=== PATIENT | female | born 1945 | race African-American/Black ===

== ENCOUNTER 2018-08-04 10:05 | Inpatient (IN) | payer MEDICARE, MEDICAID ==
[2018-08-04] MEDS ORDERED: cefTRIAXone\\ROCEPHIN 1 GM VIAL ONE (10:51)
[2018-08-04 13:23] LABS: #Basophils 0.1 thou/uL (0.0-0.2); #Eosinphils 0.2 thou/uL (0.0-0.7); #Lymphocytes 1.9 thou/uL (1.20-3.40); #Monocytes 0.9 thou/uL (0.11-0.59); #Neutrophils 9.3 thou/uL (1.40-6.50); %Basophils 0.4 % (0.0-1.0); %Eosinophils 1.3 % (0.0-10.0); %Lymphocytes 15.1 % (21.0-51.0); %Monocytes 7.6 % (0.0-10.0); %Neutrophils 75.6 % (42.0-75.0); Hemoglobin 11.2 g/dL (12.0-16.0); Mean Corpuscular HGB CONC 29.6 g/dL (32.0-36.0); Mean Corpuscular Hemoglobin 31.9 pg (27.0-31.0); Mean Platelet Volume 8.1 fL (7.4-10.4); Platelet Count 422 thou/uL (130-400); White Blood Cell (WBC) Count 12.3 thou/uL (4.8-10.8)
[2018-08-04 13:49] LABS: ALT (SGPT) 20 U/L (8-55); AST (SGOT) 38 U/L (5-34); Albumin 2.6 g/dL (3.4-4.8); Alkaline Phosphatase 149 U/L (40-150); Anion Gap 20 mmol/L (10-20); BUN (Urea Nitrogen) 27 mg/dL (9.8-20.1); Bilirubin, Total 0.9 mg/dL (0.2-1.2); Calc. Creatinine Clearance 0 mL/min (70-130); Calcium 9.2 mg/dL (7.8-10.44); Carbon Dioxide 27 mmol/L (23-31); Chloride 95 mmol/L (98-107); Estimated GFR-MDRD 7; Globulin 4.4 g/dL (2.4-3.5); Lipase 16 U/L (8-78); Potassium 4.3 mmol/L (3.5-5.1); Sodium 138 mmol/L (136-145)
[2018-08-04 13:53] LABS: CKMB 0.7 ng/mL (0-6.6); Troponin I 0.031 ng/mL (< 0.028)
[2018-08-04 13:56] LABS: Glucose 54 mg/dL (83-110)
[2018-08-04] MEDS ORDERED: Dextrose 50% Abboject 50 ML SYRINGE ONE (13:59)
[2018-08-04 15:31] LABS: Bilirubin Negative (Negative); Blood, Urine Moderate (Negative); Clarity TURBID (Clear); Glucose, Urine (Dipstick) Negative (Negative); Leukocyte Large (Negative); Nitrite Negative (Negative); Protein, Urine (Dipstick) 100 mg/dL (Neg-Trace)
[2018-08-04 15:33] LABS: Squamous Epithelial 21-50 HPF (0-3)
[2018-08-04 15:37] LABS: Pathc Cast-AUWi Flag 4.84 (0-2.49); Yeast-AUWi Flag 93.1 (0-25.0)
[2018-08-04 15:56] LABS: Bacteria/HPF 3+ HPF (None Seen); Hyaline Casts/LPF NONE SEEN LPF (0-3 Hyaline); Manual Microscopic Reviewed? No Path Casts Seen; RBC/HPF 0-3 HPF (0-3); Renal Epithelial 0-3 HPF (0-3); Yeast-All Forms None Seen HPF (None Seen)
[2018-08-04 18:37] VITALS: BMI 21.8
[2018-08-04] MEDS ORDERED: Acetaminophen 325 MG TAB PO PRN (18:41)
[2018-08-04] MEDS ORDERED: Guaifenesin DM 100-10/5 ML UDCUP PO PRN (18:41)
[2018-08-04] MEDS: Dextrose 5 % And 0.9 % NaCl 1,000 ML IV SCH (23:06)
[2018-08-04] MEDS: Metoclopramide HCl 10 MG TAB PO SCH (23:08)
[2018-08-04] MEDS: cloNIDine 0.1 MG TAB PO SCH (23:09)
[2018-08-04] MEDS: Heparin 5,000 UNITS/ML VIAL SC SCH (23:15)
--- NOTE | 2018-08-04 23:37 | HP ---
REASON FOR ADMISSION: Intractable nausea, vomiting, weight loss of 23 pounds in the last 2 months. HISTORY OF PRESENT ILLNESS: The patient gives history of having severe nausea and vomiting off and o n from last two months. Patient states she was weighing 150 pounds and is now 127 pounds. She has h ad screening colonoscopies including upper endoscopy done more than 10 years ago and was found to hav e just polyp. This was not done here. 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 Burton in [place]. Patient has mild abdominal discomfort in the middle, but no real pain or colic. She has been living at a [facility] home from last 4 years in [place]. PAST MEDICAL/SURGICAL HISTORY: End-stage renal disease on hemodialysis on Tuesday, Tuesday, and Tue from last 4 years, hypertension, dyslipidemia, hypothyroidism, history of cerebrovascular accide nt with right-sided hemiparesis, thyroid surgery, left upper extremity dialysis access procedures, os teoarthritis, history of polio. CURRENT MEDICATIONS: Please note patient does not recall any of her medications. We will try to obt ain from her usp. Per [facility], patient is on Celexa 20 mg daily, colestipol 1 gram p.o. 3 times daily, metoprolol 100 mg twice daily, Protonix 40 mg daily, sodium bicarbonate 650 mg twice dawna ly, aspirin 81 mg p.o. daily, clonidine 0.1 mg p.o. 3 times daily, ferrous sulfate 325 mg twice daily , Procardia-XL 60 mg daily, MiraLax 17 grams daily. ALLERGIES: COREG, EZETIMIBE, CRESTOR, SIMVASTATIN. PERSONAL HISTORY: Does not abuse alcohol or drugs. No history of smoking. She is currently wheelch air bound and takes a few steps with a walker. She is at [facility] from last 4 year s. FAMILY HISTORY: Mother at the age of 70 from unknown causes. Father in his 80s with histo ry of prostate cancer. CODE STATUS: FULL. Power of commonwealth attorney is her daughter, Ms. Maddie Hester, number to reach her is . REVIEW OF SYSTEMS: The following complete review of systems was negative, unless otherwise mentioned in the HPI or below: Constitutional: Weight loss or gain, ability to conduct usual activities. Sk in: Rash, itching. Eyes: Double vision, pain. ENT/Mouth: Nose bleeding, neck stiffness, pain, te nderness. Cardiovascular: Palpitations, dyspnea on exertion, orthopnea. Respiratory: Shortness of breath, wheezing, cough, hemoptysis, fever or night sweats. Gastrointestinal: Poor appetite, abdom inal pain, heartburn, nausea, vomiting, constipation, or diarrhea. Genitourinary: Urgency, frequenc y, dysuria, nocturia. Musculoskeletal: Pain, swelling. Neurologic/Psychiatric: Anxiety, depressio n. Allergy/Immunologic: Skin rash, bleeding tendency. PHYSICAL EXAMINATION: GENERAL: The patient is a 73-year-old female who is currently not in any acute distress. VITAL SIGNS: Blood pressure 126/76, pulse 66 per minute, respiratory rate is 16 per minute, temperat ure 98.5 degrees Fahrenheit, saturating 94% on room air. NECK: Supple, no elevated JVD. HEENT: Eyes, extraocular muscles intact. Pupils are reacting to light. Oral cavity, mucous membran es are dry. No exudates or congestion. CARDIOVASCULAR: S1, S2 heard. Regular rhythm. RESPIRATORY: Air entry 1+ bilaterally. No rales or rhonchi. ABDOMEN: Soft, bowel sounds heard. No tenderness, rigidity or guarding. EXTREMITIES: There is peripheral edema and mild calf tenderness. VASCULAR: Peripheral pulses are 1+ bilateral, no ischemic ulcerations or gangrene. CENTRAL NERVOUS SYSTEM: The patient has mild right hemiparesis, also has flexion deformities of her fingers which family stated they are chronic. No acute focal deficits seen. PSYCHIATRIC: The patient's mood is euthymic. No hallucinations or delusions. LABORATORY AND X-RAY FINDINGS: White count of 12, H&H 11 and 37, platelet count 422 with 75% neutrop hils, MCV is 108, BUN 27, creatinine 6.9, serum bicarbonate 27. Serum glucose 54. Lactic acid 2.0, AST 38, albumin is 2.6, troponin I 0.03. Lipase is 16. UA shows large leukoesterase, greater than 5 0 wbc's, 3+ bacteria. CLINICAL IMPRESSION AND PLAN: Patient will be admitted to medical floor for intractable nausea, vomi ting and weight loss. She also had hypoglycemia and it is unclear if she has invasive UTI to rule ou t sepsis. We will place her on D5 NS at 75 mL per hour. We will continue her aspirin, calcitriol, C elexa, clonidine, ferrous sulfate, metoprolol, Procardia-XL as before. Patient will be on Protonix 4 0 mg twice daily and Reglan 10 mg a.c. and at bedtime. We will obtain CT of the abdomen and pelvis w ith and without contrast and dialyze her likely in the morning. We will also obtain ultrasound venou s Doppler of lower extremities to rule out DVT. The patient is essentially wheelchair bound and has swelling of both calf areas with tenderness as well. We will consult Dr. Herson Rosas for Gastroente rology.
[2018-08-05] MEDS: Metoprolol Tartrate 100 MG TAB PO SCH ×3 (04:41→20:20)
[2018-08-05 05:34] LABS: Anion Gap 11 mmol/L (10-20); BUN (Urea Nitrogen) 28 mg/dL (9.8-20.1); Calc. Creatinine Clearance 6 mL/min (70-130); Calcium 7.9 mg/dL (7.8-10.44); Carbon Dioxide 29 mmol/L (23-31); Chloride 100 mmol/L (98-107); Estimated GFR-MDRD 6; Glucose 130 mg/dL (83-110); Potassium 3.6 mmol/L (3.5-5.1); Sodium 136 mmol/L (136-145)
[2018-08-05 06:03] LABS: Vitamin B12 Greater than 2000 pg/mL (211-911)
[2018-08-05 06:28] LABS: Hemoglobin 10.1 g/dL (12.0-16.0); Hypochromia SLIGHT = 6-15 cells (100X) (0-5/hpf); Lymphocytes 19 % (21-51); MDiff Complete? YES; Macrocytosis SLIGHT = 6-15 cells (100X) (0-5/hpf); Mean Corpuscular Hemoglobin 31.9 pg (27.0-31.0); Monocytes 10 % (0-10); Neutrophil 71 % (42-75); Platelet Count 406 thou/uL (130-400); RBC Distribution Width 16.3 % (11.5-14.5); Red Blood Cell (RBC) Count 3.15 mill/uL (4.20-5.40); White Blood Cell (WBC) Count 7.2 thou/uL (4.8-10.8)
[2018-08-05] MEDS: Metoclopramide HCl 10 MG TAB PO SCH ×4 (07:18→20:20)
--- NOTE | 2018-08-05 08:36 | CON ---
DATE OF SERVICE: 08/05/2018 HISTORY OF PRESENT ILLNESS: Ms. Caban is a 73-year-old black female who was admitted for generalize d malaise, nausea, and vomiting. She was complaining of some abdominal pain. She has also significa nt weight loss in the last several months. We are now being consulted for her maintenance hemodialys is. The patient missed her hemodialysis yesterday and she is declining dialysis today since she is n ot feeling well. REVIEW OF SYSTEMS: No chest pain. No shortness of breath. Positive for weight loss. Positive for nausea and vomiting, mild abdominal discomfort. No fever, no chills, no hematochezia, no melena, no hematemesis, no dysuria. Decreased appetite. No headache, no diplopia, no syncopal episode. MEDICATIONS: Celexa 20 mg every day, colestipol 1 gram p.o. 3 times a day, metoprolol 100 mg twice a day, Protonix 40 mg tablet once a day, aspirin 81 mg tablet once a day, clonidine 0.1 mg b.i.d. Heparin 5000 units subcu t.i.d., nifedipine 60 mg once a day. PAST MEDICAL HISTORY: 1. Recent history of progressive weight loss. 2. End-stage renal disease -- on maintenance hemodialysis Tuesday, Tuesday, and Tuesday, status post CVA, longstanding hypertension, morbid obesity, hyperlipidemia, history of gout. PAST SURGICAL HISTORY: Status post colonoscopy, status post thyroidectomy, status post bilateral tub al ligation. 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 Status post blood transfusion. Retired [facility]. Education, high school. Smoked for 5 years, two packs a day. Alcohol none. Sedentary lif estyle. FAMILY HISTORY: No family history of ESRD. ALLERGIES: None, but adverse reaction to CRESTOR, VYTORIN and COREG. TRAUMA: None. IMMUNIZATIONS: Up-to-date. HOSPITALIZATIONS: Please see past medical history. PHYSICAL EXAMINATION: VITAL SIGNS: Blood pressure 114/69, heart rate 81, respiratory rate 18, temperature 98.6, pulse ox 9 2%. GENERAL: Awake, alert, supine, comfortable, not in overt distress. SKIN: Adequate turgor. HEENT: Slightly pale conjunctivae, anicteric sclerae. NECK: No neck mass, no carotid bruits, no JVD. CHEST: No deformities. LUNGS: Clear breath sounds, no wheezing, no crackles. HEART: Normal sinus rhythm. No murmur, gallops or rubs. ABDOMEN: Globular, soft, nontender, no masses. EXTREMITIES: No edema, no deformities. LABORATORY: Laboratories of 08/05/2018, white count 7.2, hemoglobin 10.1. Sodium 136, potassium 3.6 , chloride 100, carbon dioxide 29, BUN 28, creatinine 7.85, glucose 130, calcium 7.9. ASSESSMENT AND PLAN: 1. End-stage renal disease, stable. The patient declining any dialytic intervention today. We will again reevaluate her tomorrow. If needed, I will schedule her for regular dialysis tomorrow. She u sually undergoes a 3-hour hemodialysis. Review of the last Kt/V suggests she is adequately dialyzed with the current dialysis regimen. 2. Borderline anemia, we will observe. 3. Weight loss/nausea and vomiting. CT scan of the abdomen has been scheduled. GI consult has been done. Overall, agree with current management. We will check base met and CBC in a.m.
[2018-08-05] MEDS: Heparin 5,000 UNITS/ML VIAL SC SCH ×3 (09:53→20:21)
[2018-08-05] MEDS: Dextrose 5 % And 0.9 % NaCl 1,000 ML IV SCH ×2 (09:53→21:23)
[2018-08-05] MEDS: Calcitriol 0.25 MCG CAP PO SCH (09:54)
[2018-08-05] MEDS: Aspirin 81 mg Enteric Coated Tablet PO SCH (09:54)
[2018-08-05] MEDS: Ferrous Sulfate 325 MG TAB PO SCH ×2 (09:54→17:03)
[2018-08-05] MEDS: Citalopram 20 MG TAB PO SCH (09:54)
[2018-08-05] MEDS: cloNIDine 0.1 MG TAB PO SCH ×3 (09:55→20:20)
[2018-08-05] MEDS: NIFEdipine XL 60 MG TAB PO SCH (09:55)
[2018-08-05] MEDS ORDERED: Heparin 10,000 UNITS/ 10 ML VIAL ONE (10:00)
--- NOTE | 2018-08-05 10:28 | ULT ---
ULTRASOUND WITH DOPPLER DUPLEX VENOUS LOWER EXTREMITY BILATERAL: CPT: 93126 ICD-10-PCS: B54D INDICATION: Bilateral lower extremity pain. TECHNIQUE: Color flow Doppler, spectral waveform analysis of pulsed Doppler, and batista-scale imaging with micky lilly and augmentation, were used to evaluate the bilateral common femoral, femoral, popliteal, semiautomatic taper operator ior tibial, and superficial femoral, veins; and the proximal portions of the profunda femoral and gre ater saphenous, veins. FINDINGS: There is appropriate compressibility and flow within the imaged deep vein system of each lower extrem ity without evidence of deep vein thrombosis. IMPRESSION: No deep venous thrombosis of the visualized bilateral lower extremities. POS: [facility]
--- NOTE | 2018-08-05 11:04 | PDOC.PN ---
- Subjective Encounter Start Date: 08/05/18 Encounter Start Time: 11:02 Tolerated some clear liquids. Says she is not nauseated...but could be. - Objective Resuscitation Status: Resuscitation Status FULL:Full Resuscitation Vital Signs & Weight: Vital Signs (12 hours) Temp Pulse Resp BP BP Pulse Ox 08/05/18 10:55 98.1 F 71 16 116/59 L 95 08/05/18 09:55 81 120/70 08/05/18 07:13 98.6 F 81 18 114/69 92 L 08/05/18 04:00 97.8 F 84 16 116/64 92 L 08/05/18 00:00 97.8 F 91 16 113/67 92 L 08/04/18 23:09 120/70 Weight Weight 127 lb Result Diagrams: 08/05/18 04:52 08/05/18 04:52 Phys Exam - Physical Examination Constitutional: NAD Respiratory: no wheezing, no rales, no rhonchi, clear to auscultation bilateral Cardiovascular: RRR, no significant murmur Gastrointestinal: soft, non-tender, no distention, positive bowel sounds Musculoskeletal: no edema Dx/Plan (1) Nausea & vomiting Code(s): R11.2 - NAUSEA WITH VOMITING, UNSPECIFIED Status: Acute (2) Weight loss Status: Acute (3) ESRD (end stage renal disease) on dialysis Code(s): N18.6 - END STAGE RENAL DISEASE; Z99.2 - DEPENDENCE ON RENAL DIALYSIS Status: Acute - Plan * CT abdomen results pending. * GI consult pending. * HD tomorrow.
--- NOTE | 2018-08-05 11:23 | CT ---
ABDOMEN AND PELVIC CT SCAN WITH IV CONTRAST: Date: 08/05/18 HISTORY: 73-year-old female with history of intractable nausea and vomiting and abdominal pain. FINDINGS: There are bilateral pleural effusions, somewhat larger on the right side, with bibasilar pulmonary an d parenchymal changes, also more marked on the right side, evidence for subsegmental atelectasis and/ or some associated scarring. There is three vessel coronary artery calcific disease. No evidence for pericardial effusion. Within the liver, there are numerous abnormal low attenuation foci up to 1.6 cm in size, mostly in th e right lobe, but also in the left lobe, which did not have attenuation coefficient consistent with b enign cyst, certainly raising concern for the possibility of metastasis. The pancreas, spleen, and adrenal glands are unremarkable. There is severe levoscoliosis of the lumba r spine with some resultant deformity of the abdominal structures. Very small kidneys bilaterally wit h some bilateral renal cysts, but no evidence for renal hydronephrosis. Gallbladder is present and shows some minimal pericholecystic fluid, but no overt gallbladder distent ion or ductal dilatation. Scattered calcific changes of the aorta and great vessels within the abdomen. Normal appearing appendix. Scattered colonic diverticulosis without acute diverticulitis. There are s everal areas of questionable colonic wall thickening, nonspecific. Unremarkable uterus. Trace cul-de-sac fluid. No overt adenopathy. IMPRESSION: 1. Multiple low attenuation masses within the right and left lobes of the liver, which are not defin itely benign cysts, raising concern for metastasis. 2. Small bilateral pleural effusions, larger on the right side, as well as minimal bilateral pulmona ry parenchymal changes, evidence for atelectasis and/or chronic change. 3. Severe levoscoliosis of the lumbar spine with resultant deformity of the abdominal organs. 4. Small kidneys bilaterally with bilateral renal cysts, but no renal hydronephrosis. 5. Scattered colonic diverticulosis without overt acute diverticulitis. 6. Prominent atherosclerosis of the aorta and great abdominal vessels. 7. Gallbladder is present and shows some minimal pericholecystic fluid, but no overt gallbladder dis tention or ductal dilatation. CODE T. POS: [facility]
[2018-08-06 06:28] LABS: #Eosinphils 0.1 thou/uL (0.0-0.7); #Lymphocytes 1.6 thou/uL (1.20-3.40); #Monocytes 0.7 thou/uL (0.11-0.59); #Neutrophils 6.4 thou/uL (1.40-6.50); %Basophils 0.6 % (0.0-1.0); %Lymphocytes 18.4 % (21.0-51.0); %Monocytes 8.2 % (0.0-10.0); %Neutrophils 71.9 % (42.0-75.0); Hemoglobin 10.2 g/dL (12.0-16.0); Mean Corpuscular HGB CONC 30.4 g/dL (32.0-36.0); Mean Corpuscular Hemoglobin 32.7 pg (27.0-31.0); Mean Platelet Volume 7.2 fL (7.4-10.4); Platelet Count 372 thou/uL (130-400); Red Blood Cell (RBC) Count 3.12 mill/uL (4.20-5.40); White Blood Cell (WBC) Count 8.8 thou/uL (4.8-10.8)
[2018-08-06 06:42] LABS: Anion Gap 9 mmol/L (10-20); BUN (Urea Nitrogen) 13 mg/dL (9.8-20.1); Calc. Creatinine Clearance 10 mL/min (70-130); Carbon Dioxide 29 mmol/L (23-31); Chloride 102 mmol/L (98-107); Estimated GFR-MDRD 11; Glucose 94 mg/dL (83-110); Potassium 3.4 mmol/L (3.5-5.1); Sodium 137 mmol/L (136-145)
--- NOTE | 2018-08-06 07:06 | CON ---
DATE OF CONSULTATION: 08/05/2018 REASON FOR CONSULTATION: Intractable nausea and vomiting, weight loss. CONSULTING PHYSICIAN: Tommy Mari M.D. HISTORY OF PRESENT ILLNESS: The patient is a 73-year-old -B[place] female with past medical h istory of end-stage renal disease on hemodialysis, hypertension, hyperlipidemia, hypothyroidism, cere brovascular accident with right hemiparesis, morbid obesity, gout, osteoarthritis, and a history of p olio, presenting with complaints of nausea, vomiting, and weight loss. The patient at the time of e interview, the patient had just recently got back from dialysis and as such was somewhat somnolent during the exam. She was extremely poor historian with the remainder of the information obtained layla bong through chart review. Per the patient and per chart review, she said that she had been having increased nausea and vomiting over the last 2 months; however, upon further questioning the patient, she said that she had been having nausea "kind often" with actual vomiting approximately once every 2 weeks. This was associated with increased heartburn but "not anymore." Upon further questioning o f the patient about her weight loss, she stated that she had been losing weight at home, but could no t remember exactly how much over what time period. Per chart review, it states that she had lost radha roximately 20-25 pounds over the last few months in association with severe nausea and vomiting. Per chart review, it also stated that she had been having increased abdominal discomfort from seeming e periumbilical region, but upon questioning the patient on physical exam today, she denies any abdom inal pain nor was tenderness to palpation elicited on physical examination. At the current time, the patient denies any nausea, vomiting, fevers, chills, shortness of breath, abdominal pain, diarrhea, constipation or GI bleeding. REVIEW OF SYSTEMS: A 10-category review of systems was obtained with all responses negative except f or the pertinent positives as listed in the HPI. PAST MEDICAL HISTORY: As per HPI. PAST SURGICAL HISTORY: Left upper extremity arteriovenous fistula placement, hemodialysis. FAMILY HISTORY: Denies any GI malignancies. SOCIAL HISTORY: Denies any tobacco, alcohol or illicit drug use. OUTPATIENT MEDICATIONS: Reviewed. ALLERGIES: COREG, EZETIMIBE, CRESTOR, and SIMVASTATIN. PHYSICAL EXAMINATION: VITAL SIGNS: Temperature 97.6, pulse 77, blood pressure 130/69, respiratory rate 16, satting 94% on room air. GENERAL: The patient was lying in bed in no acute distress, alert and oriented x3, somewhat somnolen t during the examination. NECK: Supple. No JVD or scleral icterus noted. CARDIOVASCULAR: Regular rate and rhythm with no discernible murmurs, gallops or rubs. LUNGS: Clear to auscultation bilaterally with no discernible wheezes or rales. ABDOMEN: Normoactive bowel sounds, soft, nontender, nondistended. EXTREMITIES: No cyanosis, clubbing or edema. LABORATORY DATA: CBC with a white blood cell count of 7.2, hemoglobin 10.1, hematocrit 33.6, platele ts 406. Chemistry with a sodium of 136, potassium 3.6, chloride 100, CO2 of 29, BUN 28, creatinine 7 .85, glucose 130, AST 38, ALT 20, alkaline phosphatase 149, total bilirubin 0.9, albumin 2.6, lipase 16. Urinalysis was consistent with a contaminated sample. IMAGING DATA: CT of the abdomen and pelvis obtained on 08/05/2018 showed multiple/numerous abnormal low attenuation foci up to 1.6 cm seen in both the left and right hepatic lobes concerning for metast atic disease. Bilateral pleural effusions with the effusion being somewhat larger on the right side was also seen. Subsegmental atelectasis was also noted during the CT scan. ASSESSMENT AND PLAN: The patient is a 73-year-old -[place] female with past medical history of end-stage renal disease on hemodialysis, hypertension, hyperlipidemia, hypothyroidism, cerebrovasc ular accident with right hemiparesis, morbid obesity, gout, osteoarthritis, and a history of polio, p resenting with a history of chronic nausea and vomiting, weight loss and abnormal GI imaging concerni ng for metastatic disease. Chronic nausea and vomiting. Per chart review, the patient had remarked that she has been having chr onic nausea and vomiting over the last 2 months characterized as frequent episodes of emesis; however , upon questioning the patient tonight she states that she would get nauseated on a more common basis , but would vomit approximately once every 2-3 weeks with nonbloody emesis. She does endorse a histo ry of substernal pyrosis/heartburn, which could potentially contribute to increased nausea and vomiti ng, but it is unclear to assess at this time given the patient's conflicting stories per chart review and with the interview obtained tatiana. RECOMMENDATIONS: 1. We would continue pantoprazole 40 mg b.i.d. for possible acid reflux contributing to nausea and v omiting. 2. Would consider changing patient from metoclopramide to Zofran given the lack of evidence of gastr oparesis in this particular patient and the long-term side effects associated with use. 3. We will confer with primary team in the morning as to further guidance regarding nausea and vomit ing. Abnormal GI imaging. The patient is presenting with a stated history of increased nausea, vomiting, and weight loss of approximately 20 pounds over the last couple of months along with the appearance o f numerous foci within the left and right hepatic lobes measuring up to 1.6 cm. At this point, it is concerning for possible metastatic disease, most likely from a colonic origin. Per chart review, th e patient had had a colonoscopy performed approximately 10 years ago, during which she was found to h ave just a polyp. The operative report is not available for review. At this time, when I broached t he subject of a repeat colonoscopy to the patient tatiana, she gave a very noncommittal answer during the course of our interview. RECOMMENDATIONS: 1. Would obtain a serum CEA for possible colonic malignancy. If elevated, would strongly consider c olonoscopy for further evaluation. 2. We will confer with primary team and the patient again tomorrow about possible colonoscopy for in traluminal evaluation of a colonic primary. We will continue to follow. Please call with any questions.
[2018-08-06] MEDS: Metoclopramide HCl 10 MG TAB PO SCH ×4 (08:49→20:40)
[2018-08-06] MEDS: Ferrous Sulfate 325 MG TAB PO SCH ×2 (08:49→16:03)
[2018-08-06] MEDS: Aspirin 81 mg Enteric Coated Tablet PO SCH (08:49)
[2018-08-06] MEDS: cloNIDine 0.1 MG TAB PO SCH ×3 (08:50→20:40)
[2018-08-06] MEDS: Calcitriol 0.25 MCG CAP PO SCH (08:50)
[2018-08-06] MEDS: Metoprolol Tartrate 100 MG TAB PO SCH ×2 (08:50→20:40)
[2018-08-06] MEDS: Heparin 5,000 UNITS/ML VIAL SC SCH ×3 (08:50→20:41)
[2018-08-06] MEDS: Citalopram 20 MG TAB PO SCH (08:50)
[2018-08-06] MEDS: NIFEdipine XL 60 MG TAB PO SCH (08:51)
[2018-08-06] MEDS: Saccharomyces boulardii 250 MG CAP PO SCH (08:51)
--- NOTE | 2018-08-06 10:31 | ULT ---
RIGHT UPPER QUADRANT ULTRASOUND: Date: 08/06/18 HISTORY: 73-year-old female with history of follow-up lesions on liver. COMPARISON: 08/05/18. FINDINGS: Liver echotexture is very coarse with multiple nodular masses throughout the right and left lobes of the liver, up to 2.1 cm in size, evidence for metastasis. The gallbladder was difficult to visualize, but appeared to have echogenic material within the lumen, as well as gallbladder wall thickening and pericholecystic fluid. No common duct or intrahepatic ductal dilatation. Right pleural effusion. Sma ll right renal cyst. IMPRESSION: Coarse liver echotexture with multiple nodular masses within right and left lobes of the liver, up to 2.1 cm, evidence for liver metastasis. No common duct or intrahepatic ductal dilatation. Poorly defi ana maria gallbladder with what appears to be some echogenic material within the gallbladder, possibly slud ge or nonshadowing stones, as well as some pericholecystic fluid. Right renal cyst and right pleural effusion. POS: [facility]
--- NOTE | 2018-08-06 14:04 | HP ---
HISTORY OF PRESENT ILLNESS: Ms. Caban is a 73-year-old black female with ESRD and [facility] maintenance hemod[facility]. She initially declined dialysis yesterday, but changed he r mind, she underwent dialysis. She is admitted for nausea and vomiting and for weight loss. GI has been consulted and imaging of the abdomen and pelvis - CT scan showed multiple low attenuation ricardo s in the right and left lobes of the liver. There is small bilateral pleural effusion. GI is recomm ending colonoscopy, especially with mildly elevated CEA. No other complaints today. No chest pain, shortness of breath. OBJECTIVE: VITAL SIGNS: Blood pressure is 138/61, heart rate 84, respiratory rate 16, temperature 97.6, pulse o x 94%. GENERAL: Noted to be awake, alert, comfortable, not in overt distress. SKIN: Adequate turgor. HEENT: She has pinkish conjunctivae, anicteric sclerae. NECK: No neck mass, no carotid bruits, no JVD. CHEST: No deformities. LUNGS: Clear breath sounds. HEART: Normal sinus rhythm. No murmur, no gallops, no rubs. ABDOMEN: Globular, soft, nontender, no masses. EXTREMITIES: No edema, no deformities. MEDICATIONS: 08/06/2018 was reviewed. LABORATORY: Laboratories of 08/06/2018, white count 8.8, hemoglobin 10.2. Sodium 134, potassium 3.4 , chloride 102, carbon dioxide 29, BUN 13, creatinine 4.58, glucose 94, calcium 8. CEA 6.16. Hemoglobin 10.2. ASSESSMENT AND PLAN: 1. Borderline anemia -- we will continue to observe. 2. Weight loss -- GI has been consulted. She is being worked up for possible colonic malignancy. S he does have lesions noted on the liver with a CAT scan for a possible colonoscopy. 3. End-stage renal disease, stable. We will continue current maintenance hemodialysis on Tuesday, , and Tuesday. Recheck base met and CBC in a.m.
[2018-08-06] MEDS: Ondansetron HCl/PF 4 MG/2 ML Vial IVP PRN (14:40)
--- NOTE | 2018-08-06 18:09 | PDOC.PN ---
- Subjective Encounter Start Date: 08/06/18 Encounter Start Time: 08:50 Patient reports that she had HD yesterday, but nursing indicates otherwise. She denied any problems, but was reported later to have some nausea by nursing. - Objective Resuscitation Status: Resuscitation Status FULL:Full Resuscitation Vital Signs & Weight: Vital Signs (12 hours) Temp Pulse Resp BP BP Pulse Ox 08/06/18 15:21 97.8 F 68 18 144/77 H 92 L 08/06/18 14:41 140/68 08/06/18 11:33 97.5 F L 68 16 118/53 L 95 08/06/18 08:51 138/61 08/06/18 08:50 138/61 08/06/18 08:00 94 L 08/06/18 07:11 97.6 F 84 16 138/61 94 L Weight Admit Weight 127 lb Weight 127 lb I&O: 08/05/18 08/06/18 08/07/18 06:59 06:59 06:59 Intake Total 950 1400 Balance 950 1400 Result Diagrams: 08/06/18 06:02 08/06/18 06:02 Additional Labs: Accuchecks 08/06/18 05:35 POC Glucose 100 Phys Exam - Physical Examination Constitutional: NAD Respiratory: no wheezing, no rales, no rhonchi, clear to auscultation bilateral Cardiovascular: RRR, no significant murmur, no rub Gastrointestinal: soft, non-tender, no distention, positive bowel sounds Musculoskeletal: no edema Dx/Plan (1) Nausea & vomiting Code(s): R11.2 - NAUSEA WITH VOMITING, UNSPECIFIED Status: Acute Comment: Symptomatic treatment. (2) Weight loss Status: Acute (3) ESRD (end stage renal disease) on dialysis Code(s): N18.6 - END STAGE RENAL DISEASE; Z99.2 - DEPENDENCE ON RENAL DIALYSIS Status: Acute (4) Liver masses Code(s): R16.0 - HEPATOMEGALY, NOT ELSEWHERE CLASSIFIED Status: Acute Comment: Confirmed on US to have characteristics of metastatic neoplasm. She says she is willing to undergo colonoscopy. Need to get a tissue diagnosis. Colonoscopy v. liver biopsy. - Plan * Need to get a tissue diagnosis for what looks like liver mets. Has had weight loss and N/V. Needs colonoscopy or liver biopsy.
[2018-08-06] MEDS ORDERED: GoLYTELY 4,000 ml Bottle PO SCH (20:15)
--- NOTE | 2018-08-07 00:36 | PRG ---
DATE OF SERVICE: 08/06/2018 REASON FOR CONSULTATION: Abnormal GI imaging. SUBJECTIVE: The patient did well overnight with no acute events or problems. She states that she do es not have any nausea or vomiting nor does she endorse any abdominal pain. Currently denies nausea, vomiting, fevers, chills, abdominal pain, GI bleeding, dysphagia, or odynophagia. I discussed the findings of her recent CT scan as well as the elevated CEA, concerning for the possib ility of a colonic malignancy. She is amenable to endoscopic evaluation at this time. OBJECTIVE: VITAL SIGNS: Temperature 98, pulse 78, blood pressure 136/73, respiratory rate 16, satting 94% on ro om air. GENERAL: Patient is lying in bed in no acute distress, alert and oriented x3. CARDIOVASCULAR: Regular rate and rhythm. LUNGS: Clear to auscultation bilaterally. ABDOMEN: Normoactive bowel sounds, soft, nontender, nondistended. EXTREMITIES: No cyanosis, clubbing, or edema. LABORATORY DATA: CBC with a white blood cell count of 8.8, hemoglobin 10.2, hematocrit 33.6, platele ts 372. Chemistry with a sodium of 137, potassium 3.4, chloride 102, CO2 of 29, BUN 13, creatinine 4 .58, glucose 94. CEA elevated at 6.16. IMAGING DATA: No current GI imaging is available for review. Right upper quadrant ultrasound obtain ed on 08/06/2018 showed the liver being coarsened echotexture with multiple nodular masses throughout the right and left lobes of the liver measuring up to 2.1 cm in size concerning for metastasis. It also showed echogenic material within the lumen of the gallbladder as well as gallbladder wall thicke salina and pericholecystic fluid. There was no common duct or intrahepatic ductal dilatation. ASSESSMENT AND PLAN: The patient is a 73-year-old -[place] female with past medical history of end-stage renal disease on hemodialysis, hypertension, hyperlipidemia, hypothyroidism, cerebrovasc ular accident with right hemiparesis, morbid obesity, gout, osteoarthritis, and history of polio, pre senting with chronic nausea, vomiting, weight loss, and abnormal GI imaging concerning for metastatic disease. Abnormal gastrointestinal imaging: The patient is presenting with a stated history of increased naus ea, vomiting, and weight loss of approximately 20 pounds over the last couple of months that coincide s with the appearance of multiple foci within the left and right hepatic lobes on both CT and right u pper quadrant ultrasound. At this point, this has also been associated with an increased CEA of appr oximately 6.16. At this point, this is highly concerning for possible metastatic disease with the mo st likely origin being of the colon. At this time, I discussed the possibility of a colonic malignan cy with the patient and she is amenable to colonic preparation tonight in preparation for the colonos copy tomorrow. RECOMMENDATIONS: We will place the patient on clear liquid diet today with plans to make her n.p.o. at midnight in preparation for colonoscopy tomorrow. Patient is to drink 4 liters of GoLYTELY in pre paration for the procedure as well. We will continue to follow. Please call with any questions.
[2018-08-07 04:00] LABS: #Eosinphils 0.1 thou/uL (0.0-0.7); #Lymphocytes 1.9 thou/uL (1.20-3.40); #Neutrophils 5.5 thou/uL (1.40-6.50); %Basophils 0.1 % (0.0-1.0); %Eosinophils 1.5 % (0.0-10.0); %Lymphocytes 21.6 % (21.0-51.0); %Monocytes 12.1 % (0.0-10.0); %Neutrophils 64.6 % (42.0-75.0); Hemoglobin 9.3 g/dL (12.0-16.0); Mean Corpuscular HGB CONC 30.5 g/dL (32.0-36.0); Mean Corpuscular Hemoglobin 32.8 pg (27.0-31.0); Platelet Count 379 thou/uL (130-400); RBC Distribution Width 16.9 % (11.5-14.5); Red Blood Cell (RBC) Count 2.84 mill/uL (4.20-5.40); White Blood Cell (WBC) Count 8.6 thou/uL (4.8-10.8)
[2018-08-07 04:18] LABS: Anion Gap 11 mmol/L (10-20); BUN (Urea Nitrogen) 15 mg/dL (9.8-20.1); Calc. Creatinine Clearance 8 mL/min (70-130); Calcium 7.8 mg/dL (7.8-10.44); Carbon Dioxide 28 mmol/L (23-31); Chloride 102 mmol/L (98-107); Estimated GFR-MDRD 9; Glucose 77 mg/dL (83-110); Potassium 3.7 mmol/L (3.5-5.1); Sodium 137 mmol/L (136-145)
[2018-08-07] MEDS ORDERED: Metoprolol Tartrate 5 MG/5 ML VIAL ONE (05:17)
[2018-08-07] MEDS: Ondansetron HCl/PF 4 MG/2 ML Vial IVP PRN ×2 (05:29→16:37)
[2018-08-07] MEDS: Metoprolol Tartrate 100 MG TAB PO SCH ×2 (05:35→20:19)
[2018-08-07] MEDS: Heparin 5,000 UNITS/ML VIAL SC SCH ×3 (08:07→20:18)
[2018-08-07] MEDS: cloNIDine 0.1 MG TAB PO SCH ×3 (08:07→20:18)
[2018-08-07] MEDS: Citalopram 20 MG TAB PO SCH (08:07)
[2018-08-07] MEDS: Calcitriol 0.25 MCG CAP PO SCH (08:07)
[2018-08-07] MEDS: Aspirin 81 mg Enteric Coated Tablet PO SCH (08:07)
[2018-08-07] MEDS: Ferrous Sulfate 325 MG TAB PO SCH ×2 (08:07→16:40)
[2018-08-07] MEDS: Metoclopramide HCl 10 MG TAB PO SCH ×4 (08:07→20:17)
[2018-08-07] MEDS: Saccharomyces boulardii 250 MG CAP PO SCH (08:08)
[2018-08-07] MEDS: NIFEdipine XL 60 MG TAB PO SCH (08:08)
--- NOTE | 2018-08-07 10:06 | PRG ---
DATE OF SERVICE: 08/07/2018 SUBJECTIVE: Ms. Caban is a 73-year-old black female who was admitted for generalized malaise. She was noted to be anemic at that time. She is currently on Epogen. She was also noted on imaging of the abdomen to have a ? of metastatic liver lesion. For that reason , GI was consulted. A planned colonoscopy has been scheduled. No other complaints today. PHYSICAL EXAMINATION: VITAL SIGNS: Blood pressure 151/82, heart rate 65, respiratory rate 19, temperature 97.6, pulse ox 9 2%. GENERAL: Awake, alert, comfortable, not in distress. SKIN: Adequate turgor. HEENT: Slightly pale conjunctivae, anicteric sclerae. NECK: No neck mass, no carotid bruits, no JVD. CHEST: No deformities. LUNGS: Clear breath sounds. HEART: Normal sinus rhythm. No murmur, no gallops, no rubs. ABDOMEN: Globular, soft, nontender, no masses. EXTREMITIES: No edema. MEDICATIONS: 08/07/2018 - Reviewed. LABORATORY: 08/07/2018 - White count 8.6, hemoglobin 9.3. Sodium 137, potassium 3.7, chloride 102, carbon dioxide 28, BUN 15, creatinine 5.58, glucose 77, calcium 7.8. CEA 6.16 -- elevated. ASSESSMENT AND PLAN: 1. Anemia/hepatic lesions - patient is scheduled for a colonoscopy today. She will try to be ruled out for possible colonic carcinoma. 2. End-stage renal disease. We will continue current heparin free hemodialysis. She is scheduled t his afternoon. Fluid removal only as tolerated. She is scheduled for a 3-hour dialysis. 3. Anemia. Continue to observe. Recheck CBC and base met in a.m.
[2018-08-07] MEDS: Ciprofloxacin Lactate/D5W 200 MG in Premix Bag 1 BAG IVPB SCH ×4 (13:10→23:00)
--- NOTE | 2018-08-07 22:43 | PRG ---
DATE OF SERVICE: 08/07/2018 REASON FOR CONSULTATION: Abnormal GI imaging. SUBJECTIVE: The patient was planned for colonoscopy earlier this morning, but was unable to tolerate the prep, drinking approximately 1 liter of the fluid and experiencing increased nausea with adminis tration. She then refused further administration of the GoLYTELY prep and as such was not adequately prepped for the procedure today. Upon talking with the patient about the need for colonoscopy, I ex pressed the importance of the procedure for determination of a possible colonic malignancy and as suc h will need to be properly prepared for the examination so that adequate visualization of the colonic mucosa could be performed. However, at this time, she does not wish to proceed with the colonoscopy and stated that she could not tolerate the prep and would therefore not want this procedure. She ex pressed some desire to try again for the colonoscopy as an outpatient when she returns in the senior care, but again was adamant that she does not want the procedure during this hospitalization. I hav e explained to the patient that delay in diagnosis could ultimately lead to her demise and she stated that she understood that not progressing with this procedure could result in her . At the time of my interview, the patient was in dialysis and was exhibiting increased nausea with hem odialysis. However, she had not had any nausea, vomiting up until that point. She currently denies any fevers, chills, abdominal pain, GI bleeding, dysphagia or odynophagia. OBJECTIVE: VITAL SIGNS: Temperature 97.6, pulse 65, blood pressure 151/82, respiratory rate 19, satting 92% on room air. GENERAL: The patient was lying in bed in no acute distress, alert and oriented x3. CARDIOVASCULAR: Regular rate and rhythm. RESPIRATORY: Clear to auscultation bilaterally. ABDOMEN: Normoactive bowel sounds, soft, nontender, nondistended. EXTREMITIES: No cyanosis, clubbing or edema. LABORATORY DATA: CBC with a white blood cell count of 8.6, hemoglobin 9.3, hematocrit 30.5, platelet s 379. Chemistry with a sodium of 137, potassium 3.7, chloride 102, CO2 of 28, BUN 15, creatinine 5. 58, glucose 77. IMAGING DATA: No current GI imaging is available for review. ASSESSMENT AND PLAN: The patient is a 73-year-old -[place] female with past medical history of end-stage renal disease on hemodialysis, hypertension, hyperlipidemia, hypothyroidism, cerebrovasc ular accident with right hemiparesis, morbid obesity, gout, osteoarthritis, and history of polio, pre senting with chronic nausea, vomiting, weight loss and abnormal GI imaging concerning for metastatic disease. Abnormal GI imaging/possible metastatic disease. The patient is presenting with a stated history of increased nausea, vomiting, and weight loss of approximately 20 pounds over the last 2-3 months that coincides with the appearance of multiple foci within the left and right lobes of the liver that were seen on both CT and right upper quadrant ultrasound. Obtaining a CEA level yielded high value of ap proximately 6.16 raising the possibility of a colonic malignancy. She was due to be prepped for colo noscopy on 08/07/2018 but was unable to tolerate the GoLYTELY prep and is now refusing to proceed wit h the procedure. At this point given her renal dysfunction and risk of fluid shifts, different preps could not be attempted as they could potentially harm the patient with GoLYTELY prep, the only prep that could be potentially used. I discussed the importance of the procedure to the patient and at th is time she would like to defer the procedure despite the fact that it would not give additional info rmation related to a possible metastatic malignancy. The patient is refusing to undergo preparation for the colonoscopy and does understand the risks associated with such a decision. RECOMMENDATIONS: 1. We will hold off on any endoscopic intervention and for now given the patient's preference. 2. Would highly recommend discussion with patient and the patient's family about the need for furthe r information prior to undergoing treatment for this condition. However, I would also stress the pos sible modalities of treatment including surgical and chemotherapy avenues and whether or not the dany ent would be amenable to undergoing significant treatment for metastatic condition versus placement o n hospice care. We will follow peripherally for now. Please call with any questions or if the patient is amenable to endoscopic intervention.
--- NOTE | 2018-08-07 22:48 | PDOC.PN ---
- Subjective Encounter Start Date: 08/07/18 Encounter Start Time: 10:00 Doing her best to drink the bowel prep. Says she can't because she will vomit. - Objective Resuscitation Status: Resuscitation Status FULL:Full Resuscitation Vital Signs & Weight: Vital Signs (12 hours) Temp Pulse Resp BP BP Pulse Ox 08/07/18 20:18 149/75 H 08/07/18 20:00 97.6 F 74 16 125/72 93 L Weight Admit Weight 127 lb Weight 127 lb I&O: 08/06/18 08/07/18 08/08/18 06:59 06:59 06:59 Intake Total 950 2500 340 Balance 950 2500 340 Result Diagrams: 08/07/18 03:44 08/07/18 03:44 Additional Labs: Accuchecks 08/07/18 05:44 POC Glucose 90 Phys Exam - Physical Examination Constitutional: NAD Respiratory: no wheezing, no rales, no rhonchi Cardiovascular: RRR, no significant murmur, no rub Gastrointestinal: soft, non-tender, no distention Musculoskeletal: no edema Psychiatric: normal affect Dx/Plan (1) Nausea & vomiting Code(s): R11.2 - NAUSEA WITH VOMITING, UNSPECIFIED Status: Acute Comment: Symptomatic treatment. (2) Weight loss Status: Acute (3) ESRD (end stage renal disease) on dialysis Code(s): N18.6 - END STAGE RENAL DISEASE; Z99.2 - DEPENDENCE ON RENAL DIALYSIS Status: Acute Comment: Continuing HD. (4) Liver masses Code(s): R16.0 - HEPATOMEGALY, NOT ELSEWHERE CLASSIFIED Status: Acute Comment: Confirmed on US to have characteristics of metastatic neoplasm. She says she is willing to undergo colonoscopy. Need to get a tissue diagnosis. Colonoscopy v. liver biopsy. - Plan * Discussed with GI. She has told him that she just wants to go home and declined to do the colonoscopy. I will discuss with the patient and family tomorrow regarding options. Given her general debility, the ESRD and likelihood that this does represent a metastatic cancer, she would not likely be a great candidate for treatment. Alternatively, she could consider a palliative care approach..
[2018-08-07] MEDS ORDERED: Cipro 250 MG TAB PO SCH (23:15)
[2018-08-08 05:25] LABS: Anion Gap 12 mmol/L (10-20); BUN (Urea Nitrogen) 9 mg/dL (9.8-20.1); Calc. Creatinine Clearance 11 mL/min (70-130); Carbon Dioxide 30 mmol/L (23-31); Chloride 101 mmol/L (98-107); Estimated GFR-MDRD 13; Potassium 3.5 mmol/L (3.5-5.1); Sodium 139 mmol/L (136-145)
[2018-08-08 05:48] LABS: Band 2 % (5-11); Eosinophils 2 % (0-10); Glucose 54 mg/dL (83-110); Hemoglobin 9.7 g/dL (12.0-16.0); Lymphocytes 35 % (21-51); MDiff Complete? YES; Mean Corpuscular HGB CONC 30.2 g/dL (32.0-36.0); Mean Corpuscular Hemoglobin 32.5 pg (27.0-31.0); Mean Platelet Volume 7.6 fL (7.4-10.4); Monocytes 1 % (0-10); Neutrophil 60 % (42-75); Nucleated RBC 1 % (0); Platelet Count 295 thou/uL (130-400); RBC Distribution Width 17.3 % (11.5-14.5); Red Blood Cell (RBC) Count 2.97 mill/uL (4.20-5.40); White Blood Cell (WBC) Count 9.7 thou/uL (4.8-10.8)
[2018-08-08] MEDS ORDERED: Dextrose 50% Abboject 50 ML SYRINGE IVP PRN (06:24)
[2018-08-08] MEDS ORDERED: Dextrose 5% in Water 1,000 ML IV PRN (06:24)
[2018-08-08] MEDS: Metoclopramide HCl 10 MG TAB PO SCH ×3 (08:26→17:39)
[2018-08-08] MEDS: Ferrous Sulfate 325 MG TAB PO SCH ×2 (08:26→17:39)
[2018-08-08] MEDS: cloNIDine 0.1 MG TAB PO SCH ×2 (08:29→14:24)
[2018-08-08] MEDS: NIFEdipine XL 60 MG TAB PO SCH (08:29)
[2018-08-08] MEDS: Saccharomyces boulardii 250 MG CAP PO SCH (08:30)
[2018-08-08] MEDS: Calcitriol 0.25 MCG CAP PO SCH (08:30)
[2018-08-08] MEDS: Metoprolol Tartrate 100 MG TAB PO SCH (08:31)
[2018-08-08] MEDS: Aspirin 81 mg Enteric Coated Tablet PO SCH (08:31)
[2018-08-08] MEDS: Citalopram 20 MG TAB PO SCH (08:31)
[2018-08-08] MEDS: Heparin 5,000 UNITS/ML VIAL SC SCH ×2 (08:32→14:24)
--- NOTE | 2018-08-08 08:39 | ADD-PRG ---
DATE OF SERVICE: 08/07/2018 ADDENDUM I am currently at the bedside supervising her dialysis. She is having some nausea. However, minimal fluid was removed due to her decreased p.o. intake. Please note colonoscopy has been canceled due t o the fact that the patient declined to take the GoLYTELY completely. OBJECTIVE: VITAL SIGNS: Blood pressure is 151/82, heart rate 65, respiratory 19, temperature 97.6. GENERAL: Awake, alert, comfortable. SKIN: Adequate turgor. HEENT: Slightly pale conjunctivae, anicteric sclerae. LUNGS: Clear breath sounds. HEART: Normal sinus rhythm. No murmur, no gallops, no rubs. ABDOMEN: Globular, soft. EXTREMITIES: No edema, no deformities. IMPRESSION: End-stage renal disease, continue Tuesday, Tuesday, Tuesday dialysis.
[2018-08-08 18:03] VITALS: BP 132/59; TEMP 98.3
== END 2018-08-08 19:02 | DRG 441 ==
LOC: ERS 10:05 → T4-A 16:20
PROVIDERS: ADMIT Internal Medicine; ATTEND Internal Medicine
PROC: 5A1D70Z Performance of Urinary Filtration, Intermittent, Less than 6 Hours Per Day (ICD-10-PCS; principal; 2018-08-07)
DX: K76.9 Liver disease, unspecified (principal); N18.6 End stage renal disease; J90 Pleural effusion, not elsewhere classified; I69.851 Hemiplegia and hemiparesis following other cerebrovascular disease affecting right dominant side; I12.0 Hypertensive chronic kidney disease with stage 5 chronic kidney disease or end stage renal disease; Z99.2 Dependence on renal dialysis; D64.9 Anemia, unspecified; E78.5 Hyperlipidemia, unspecified; E03.9 Hypothyroidism, unspecified; Z86.12 Personal history of poliomyelitis; Z79.82 Long term (current) use of aspirin; Z99.3 Dependence on wheelchair; Z53.09 Procedure and treatment not carried out because of other contraindication; E66.01 Morbid (severe) obesity due to excess calories; Z87.891 Personal history of nicotine dependence
CPT/HCPCS: 36415; 36416; 74177; 76705; 80048; 80053; 81001; 82140; 82274; 82378; 82553; 82607; 82746; 83605; 83690; 84484; 85025; 87077; 87086; 87186; 90935; 93005; 93970; 96374; A4353; G0257; G8978-GP-CN; G8979-GP-CK; G8987-GO-CL; G8988-GO-CJ; G8989-GO-CJ; G8996-GN-CK; G8997-GN-CJ; J0696; J0744; J1610; J1644; J2405